=== PATIENT | male | born 1945 | race African-American/Black ===

== ENCOUNTER 2021-04-28 06:43 | Day surgery (SDC) | payer MEDICARE, MEDICAID ==
[2021-04-27 10:37] VITALS: BMI 24.4
[2021-04-28] MEDS ORDERED: Levofloxacin 500 mg/D5W 100 ml Premix Bag ONE (07:47)
[2021-04-28] MEDS ORDERED: B & O ONE (09:05)
[2021-04-28] MEDS ORDERED: Phenylephrine 10 MG/ML VIAL ONE (09:12)
[2021-04-28] MEDS ORDERED: Fentanyl 100 MCG/2 ML VIAL ONE (09:12)
[2021-04-28] MEDS ORDERED: Dexamethasone 20 MG/5 ML VIAL ONE (09:24)
[2021-04-28] MEDS ORDERED: Ondansetron PF 4 MG/2 ML Vial ONE (09:24)
[2021-04-28] MEDS ORDERED: PROPOFOL 200 MG/20 ML VIAL ONE (09:24)
[2021-04-28] MEDS ORDERED: PHENYLEPHRINE-NS 100 MCG/ML 10 ML SYRINGE ONE (09:24)
[2021-04-28] MEDS ORDERED: Lidocaine 1% PF 5 ML VIAL ONE (09:24)
== END 2021-04-28 11:56 | disposition home or self-care (01) ==
LOC: SDC 06:43
PROVIDERS: ATTEND Urology
PROC: 0VB07ZZ Excision of Prostate, Via Natural or Artificial Opening (ICD-10-PCS; principal; 2021-04-28)
DX: N32.0 Bladder-neck obstruction (principal); N40.1 Benign prostatic hyperplasia with lower urinary tract symptoms; I10 Essential (primary) hypertension; K21.9 Gastro-esophageal reflux disease without esophagitis; F17.200 Nicotine dependence, unspecified, uncomplicated; J45.909 Unspecified asthma, uncomplicated; Z79.899 Other long term (current) drug therapy
CPT/HCPCS: J1956; J2370; J3010

== ENCOUNTER 2023-11-04 14:03 | Outpatient (CLI) | payer OTHER, MEDICAID | END 2023-11-04 14:04 | disposition home or self-care (01) | LOC: BICCT 14:03 | PROVIDERS: ATTEND Family Medicine | DX: Z12.2 Encounter for screening for malignant neoplasm of respiratory organs (principal); F17.210 Nicotine dependence, cigarettes, uncomplicated; K76.0 Fatty (change of) liver, not elsewhere classified; N20.0 Calculus of kidney; I25.10 Atherosclerotic heart disease of native coronary artery without angina pectoris; I70.0 Atherosclerosis of aorta | CPT/HCPCS: 71271 ==

== ENCOUNTER 2024-08-21 10:15 | Outpatient (CLI) | payer OTHER, MEDICAID | END 2024-08-21 10:16 | disposition home or self-care (01) | LOC: BICULT 10:15 | PROVIDERS: ATTEND Family Medicine | DX: R74.01 Elevation of levels of liver transaminase levels (principal); K76.0 Fatty (change of) liver, not elsewhere classified | CPT/HCPCS: 76700 ==